=== PATIENT | female | born 1965 | race Caucasian/White ===

== ENCOUNTER → 2017-05-14 | Outpatient (CLI) | payer OTHER ==
[~2017-05-14] MED LIST: ACETAMINOPHEN-1 EAC1 PO; OSELB75 PO; PAMELOR25 MG PO; PROMETHAZINE V473 ML PO; TESSALON PERLE100 MG PO
== END ==
LOC: M.CT 12:30
DX: Z13.6 Encounter for screening for cardiovascular disorders (principal)

== ENCOUNTER 2017-05-30 16:43 | Emergency (ER) | payer OTHER ==
[~2017-05-30] VITALS: Ht 165.1 cm; Wt 73.5 kg
[2017-05-30] MEDS ORDERED: PAMELOR25 MG PO (17:01)
[2017-05-30 17:30] LABS: INFLUENZA A ANTIGEN None Detected (None Detect); INFLUENZA B ANTIGEN None Detected (None Detect)
[2017-05-30] MEDS ORDERED: OSELB75 PO (17:45)
[2017-05-30] MEDS ORDERED: PROMETHAZINE V473 ML PO (17:45)
[2017-05-30] MEDS ORDERED: ACETAMINOPHEN-1 EAC1 PO (17:45)
[2017-05-30] MEDS ORDERED: TESSALON PERLE100 MG PO (17:45)
[2017-05-30 18:01] VITALS: BP 143/77
== END 2017-05-30 18:02 | disposition home or self-care (01) ==
LOC: M.ERS 16:43
PROVIDERS: Physician Assistant
DX: R50.9 Fever, unspecified (principal); R05 Cough; R09.89 Other specified symptoms and signs involving the circulatory and respiratory systems; K21.9 Gastro-esophageal reflux disease without esophagitis; G43.909 Migraine, unspecified, not intractable, without status migrainosus; Z90.49 Acquired absence of other specified parts of digestive tract; Z90.710 Acquired absence of both cervix and uterus

== ENCOUNTER → 2018-01-23 | Outpatient (CLI) | payer OTHER | LOC: M.ULTRA 10:25 → M.RAD 16:00 | DX: E04.2 Nontoxic multinodular goiter (principal); N91.2 Amenorrhea, unspecified; E55.9 Vitamin D deficiency, unspecified; K21.9 Gastro-esophageal reflux disease without esophagitis; G43.909 Migraine, unspecified, not intractable, without status migrainosus; Z72.89 Other problems related to lifestyle; Z78.0 Asymptomatic menopausal state; Z90.49 Acquired absence of other specified parts of digestive tract; Z90.710 Acquired absence of both cervix and uterus ==

== ENCOUNTER → 2018-01-24 | Outpatient (CLI) | payer OTHER | LOC: M.LAB 13:22 | DX: E55.9 Vitamin D deficiency, unspecified (principal); E04.2 Nontoxic multinodular goiter; K21.9 Gastro-esophageal reflux disease without esophagitis; G43.909 Migraine, unspecified, not intractable, without status migrainosus ==

== ENCOUNTER → 2019-01-28 | Outpatient (CLI) | payer OTHER | LOC: M.ULTRA 07:30 | DX: E04.2 Nontoxic multinodular goiter (principal) ==

== ENCOUNTER → 2019-02-19 | Outpatient (CLI) | payer OTHER | LOC: M.LAB 11:30 | PROVIDERS: Internal Medicine | DX: E04.2 Nontoxic multinodular goiter (principal); E55.9 Vitamin D deficiency, unspecified ==

== ENCOUNTER → 2019-03-06 | Outpatient (CLI) | payer OTHER | LOC: M.CT 11:49 | DX: N28.1 Cyst of kidney, acquired (principal); J84.10 Pulmonary fibrosis, unspecified; R91.1 Solitary pulmonary nodule ==